=== PATIENT | male | born 1950 | race Native Hawaiian/Other Pacific Islander ===

== ENCOUNTER 2022-09-02 13:31 | Outpatient (CLI) | payer OTHER | END 2022-09-02 19:54 | disposition home or self-care (01) | LOC: CT 13:31 | PROVIDERS: ATTEND Internal Medicine | DX: R41.0 Disorientation, unspecified (principal); G47.10 Hypersomnia, unspecified; Z81.8 Family history of other mental and behavioral disorders; R53.83 Other fatigue; R41.3 Other amnesia ==

== ENCOUNTER 2022-12-13 08:39 | Outpatient (CLI) | payer OTHER | END 2022-12-13 20:51 | disposition home or self-care (01) | LOC: MRI 08:39 | PROVIDERS: ATTEND Internal Medicine | DX: R41.0 Disorientation, unspecified (principal); R41.3 Other amnesia ==